=== PATIENT | male | born 1945 | race Caucasian/White ===

== ENCOUNTER 2024-02-09 07:13 | Day surgery (SDC) | payer MEDICARE, BC, SELFPAY ==
[2024-02-09] VITALS (8 sets, daily range): BP systolic 143–167; BP diastolic 66–129; BMI 21.8
[2024-02-09] MEDS: NSS 213 ML IV (07:58)
--- NOTE | 2024-02-09 09:05 | PTCARENOTE ---
PT C/O PRESSURE IN CHEST RIGHT SIDED. 5/[address] HERNANDEZ AT BEDSIDE AND EKG ORDERED.
[2024-02-09] MEDS: NSS 1000 IV (09:08)
[2024-02-09] MEDS: TYLENOL 650 MG PO (09:22)
[2024-02-09] MEDS: MAALOX 30 ML PO (09:28)
--- NOTE | 2024-02-09 09:31 | ITS.CL.CATH ---
Field Care Coordinator - Catheterization
Cardiac Catheterization
Procedure Report:
LEFT HEART CATHETERIZATION
Date of Procedure: February 09, 2024
Procedures performed:
1: Coronary angiography
2: Left ventricular hemodynamic assessment
Primary Care Physician: Dr. Ashley Sykes
Primary Sound Tester: Dr. Calos Shultz
INDICATION: The patient is an 78-year-old man with a past medical history significant for ongoing smoking, severe COPD, status post XRT for lung cancer, renal insufficiency with a creatinine of 1.4 on February 01, and peripheral arterial disease with
left calf claudication. Echocardiography performed in October of this year at [facility] showed mild LV dilation with severely reduced systolic function and a ejection fraction estimated at 30 to 35%. In light of his
cardiomyopathy and risk factors he is referred for coronary angiography. He has no typical angina but chronic dyspnea on exertion felt to be related to his lung disease with ongoing smoking.
ACCESS: The patient was prepped and draped in usual sterile fashion. A 5 [place] sheath was placed in the right radial artery using the Seldinger over the wire technique.
HEMODYNAMIC FINDINGS (mmHg):
LV(s/d,EDP): 146/9, 16
Ao(s/d,m): 142/53, 77
ANGIOGRAPHIC FINDINGS:
Single-plane Left Ventriculography in [place] Projection: Not done
Coronary Angiography:
Dominance: Left
Left Main: Widely patent.
Left Anterior Descending: The left anterior descending artery has fairly heavy proximal and mid calcification but appears free of focal obstructive disease with only mild luminal irregularities in the LAD. There is at worst a 20% proximal LAD
smooth stenosis. The distal LAD wraps around the apex to feed the distal inferior wall with normal flow. The LAD gives rise to 3 major diagonal branches that are widely patent. The first has a high takeoff and normal distal flow. The second is
slightly larger and also widely patent with normal distal flow. The third is the smallest of the 3 and has a mid 70 to 80% stenosis with normal distal flow.
Left Circumflex: The left circumflex is a medium caliber dominant system that gives rise to a small to medium caliber high first obtuse marginal branch that is widely patent. Beyond that the circumflex has moderate luminal irregularities with at
worst a 30 to 40% stenosis in the midportion. The distal circumflex gives rise to a small distal OM, a large left-sided posterior left ventricular branch, and a small to medium caliber posterior descending artery. These vessels are all widely
patent with normal flow.
Right Coronary: Small caliber nondominant vessel that is widely patent.
Fluoroscopy Time (min): 2.7
Radiation Dose (mGy): 249
DAP (Gy.cm2): 24
Closure device: None. A TR band was applied for hemostasis at the right wrist.
Complications: None.
ASSESSMENT:
1: Mild nonobstructive coronary artery disease with branch vessel disease in a small diagonal branch.
2: Normal left ventricular filling pressures.
CONCLUSIONS and RECOMMENDATIONS:
1: Medical therapy for coronary artery disease and LV systolic dysfunction. Medical therapy for diffuse vascular disease.
2: Clinical follow-up as scheduled.
Taylor Butts M.D.
Copy to: Dr. Ashley Sykes
== END 2024-02-09 12:00 | disposition home or self-care (01) ==
LOC: CATH 07:13
PROVIDERS: ATTENDING PHYSICIAN Internal Medicine Interventional Cardiology; FAMILY PHYSICIAN Family Medicine; OTHER PHYSICIAN Internal Medicine Cardiovascular Disease
DX: I25.10 Atherosclerotic heart disease of native coronary artery without angina pectoris (principal); R06.09 Other forms of dyspnea; I10 Essential (primary) hypertension; E78.00 Pure hypercholesterolemia, unspecified; J44.9 Chronic obstructive pulmonary disease, unspecified; I65.23 Occlusion and stenosis of bilateral carotid arteries; I73.9 Peripheral vascular disease, unspecified; F17.200 Nicotine dependence, unspecified, uncomplicated; Z79.82 Long term (current) use of aspirin
CPT/HCPCS: 93005; 93458; C1894; Q9967